=== PATIENT | male | born 1990 | race African-American/Black ===

== ENCOUNTER 2018-06-13 21:41 | Emergency (ER) | payer SELFPAY ==
[2018-06-13] MEDS ORDERED: Ibuprofen 200 MG TAB ONE (22:23)
[2018-06-13] MEDS ORDERED: Amoxicillin/Potassium Clav 875 MG TAB ONE (22:23)
[2018-06-13] MEDS ORDERED: HYDROcodone/Acetaminophen 5/325 mg Tablet ONE (22:23)
== END 2018-06-13 22:34 | disposition home or self-care (01) ==
LOC: NAV ERS 21:41
DX: K03.81 Cracked tooth (principal); K02.9 Dental caries, unspecified
CPT/HCPCS: 99282

== ENCOUNTER 2018-07-16 15:02 | Emergency (ER) | payer SELFPAY | END 2018-07-16 15:40 | disposition home or self-care (01) | LOC: NAV ERS 15:02 | DX: M79.671 Pain in right foot (principal); F17.210 Nicotine dependence, cigarettes, uncomplicated | CPT/HCPCS: 99283 ==

== ENCOUNTER 2018-08-25 23:25 | Emergency (ER) | payer SELFPAY ==
[2018-08-25] MEDS ORDERED: Ketorolac Tromethamine 30 MG/ML VIAL ONE (23:53)
[2018-08-25] MEDS ORDERED: diphenhydrAMINE 50 MG/ML VIAL ONE (23:53)
[2018-08-25] MEDS ORDERED: Metoclopramide HCl 10 MG/2 ML VIAL ONE (23:53)
[2018-08-25] MEDS ORDERED: Sodium Chloride 0.9% 1,000 ML ONE (23:53)
[2018-08-26] MEDS ORDERED: methylPREDNISolone Sod Succ/PF 125 MG/2 ML VIAL ONE (00:35)
[2018-08-26] MEDS ORDERED: Metoclopramide HCl 10 MG TAB ONE (00:35)
[2018-08-26] MEDS ORDERED: Metoclopramide HCl 10 MG/2 ML VIAL ONE (00:35)
== END 2018-08-26 02:10 | disposition home or self-care (01) ==
LOC: NAV ERS 23:25
DX: R51 Headache (principal); F17.210 Nicotine dependence, cigarettes, uncomplicated
CPT/HCPCS: 99283; J1200; J1885; J2765; J2930; J7050

== ENCOUNTER 2019-04-04 21:58 | Emergency (ER) | payer SELFPAY | END 2019-04-04 22:20 | disposition home or self-care (01) | LOC: NAV ERS 21:58 | DX: M79.671 Pain in right foot (principal); F17.210 Nicotine dependence, cigarettes, uncomplicated | CPT/HCPCS: 99281 ==

== ENCOUNTER 2020-01-23 08:27 | Emergency (ER) | payer SELFPAY ==
[2020-01-23 09:26] LABS: #Basophils 0.1 thou/uL (0.0-0.2); #Eosinphils 0.1 thou/uL (0.0-0.7); #Lymphocytes 1.8 thou/uL (1.20-3.40); #Monocytes 0.8 thou/uL (0.11-0.59); #Neutrophils 5.9 thou/uL (1.40-6.50); %Eosinophils 1.5 % (0.0-10.0); %Monocytes 8.9 % (0.0-10.0); %Neutrophils 67.6 % (42.0-75.0); Hemoglobin 15.8 g/dL (14.0-18.0); Mean Corpuscular HGB CONC 32.2 g/dL (32.0-36.0); Mean Corpuscular Hemoglobin 30.1 pg (27.0-31.0); Mean Corpuscular Volume 93.4 fL (78.0-98.0); Platelet Count 215 thou/uL (130-400); Red Blood Cell (RBC) Count 5.26 mill/uL (4.70-6.10); White Blood Cell (WBC) Count 8.7 thou/uL (4.8-10.8)
[2020-01-23 09:40] LABS: Anion Gap 13 mmol/L (10-20); BUN (Urea Nitrogen) 7 mg/dL (8.9-20.6); Calc. Creatinine Clearance 0 mL/min (70-130); Calcium 8.9 mg/dL (7.8-10.44); Carbon Dioxide 25 mmol/L (22-29); Chloride 104 mmol/L (98-107); Estimated GFR-MDRD Greater than 90; Glucose 89 mg/dL (70-105); Potassium 3.7 mmol/L (3.5-5.1); Sodium 138 mmol/L (136-145)
== END 2020-01-23 10:20 | disposition home or self-care (01) ==
LOC: NAV ERS 08:27
DX: F41.1 Generalized anxiety disorder (principal); F17.210 Nicotine dependence, cigarettes, uncomplicated
CPT/HCPCS: 80048; 85025; 93005

== ENCOUNTER 2020-03-27 05:15 | Emergency (ER) | payer SELFPAY | END 2020-03-27 05:49 | disposition home or self-care (01) | LOC: NAV ERS 05:15 | DX: F41.1 Generalized anxiety disorder (principal); F17.210 Nicotine dependence, cigarettes, uncomplicated | CPT/HCPCS: 99283 ==

== ENCOUNTER 2020-05-03 23:53 | Emergency (ER) | payer SELFPAY ==
[2020-05-04] MEDS ORDERED: Ondansetron ODT 4 MG TAB ONE (00:22)
== END 2020-05-04 01:13 | disposition home or self-care (01) ==
LOC: NAV ERS 23:53
DX: R11.2 Nausea with vomiting, unspecified (principal); F17.210 Nicotine dependence, cigarettes, uncomplicated
CPT/HCPCS: 99283; Q0162

== ENCOUNTER 2021-04-26 12:15 | Emergency (ER) | payer SELFPAY | END 2021-04-26 12:54 | disposition home or self-care (01) | LOC: NAV ERS 12:15 | DX: K02.9 Dental caries, unspecified (principal); F17.210 Nicotine dependence, cigarettes, uncomplicated | CPT/HCPCS: 99282 ==

== ENCOUNTER 2022-06-22 07:35 | Emergency (ER) | payer OTHER, SELFPAY ==
[2022-06-22] MEDS ORDERED: Ketorolac Tromethamine 60 MG/2 ML VIAL ONE (08:27)
== END 2022-06-22 09:39 | disposition home or self-care (01) ==
LOC: NAV ERS 07:35
DX: S16.1XXA Strain of muscle, fascia and tendon at neck level, initial encounter (principal); F17.210 Nicotine dependence, cigarettes, uncomplicated; V89.2XXA Person injured in unspecified motor-vehicle accident, traffic, initial encounter
CPT/HCPCS: 72125; 96372; J1885

== ENCOUNTER 2022-07-07 16:32 | Emergency (ER) | payer SELFPAY | END 2022-07-07 17:13 | disposition home or self-care (01) | LOC: NAV ERS 16:32 | DX: M79.671 Pain in right foot (principal); L84 Corns and callosities; F17.210 Nicotine dependence, cigarettes, uncomplicated | CPT/HCPCS: 99283 ==

== ENCOUNTER 2023-11-27 21:53 | Emergency (ER) | payer SELFPAY ==
[2023-11-27 22:09] LABS: #Basophils 0.2 thou/uL (0.0-0.2); #Eosinphils 0.2 thou/uL (0.0-0.7); #Lymphocytes 2.6 thou/uL (1.20-3.40); #Monocytes 0.9 thou/uL (0.11-0.59); #Neutrophils 3.7 thou/uL (1.40-6.50); %Basophils 2.2 % (0.0-1.0); %Eosinophils 3.2 % (0.0-10.0); %Lymphocytes 33.8 % (21.0-51.0); %Monocytes 11.5 % (0.0-10.0); %Neutrophils 49.2 % (42.0-75.0); Hematocrit 44.5 % (42.0-52.0); Hemoglobin 14.8 g/dL (14.0-18.0); Mean Corpuscular HGB CONC 33.3 g/dL (32.0-36.0); Mean Corpuscular Hemoglobin 29.2 pg (27.0-31.0); Mean Corpuscular Volume 87.6 fl (78.0-98.0); Mean Platelet Volume 7.3 fL (7.4-10.4); Platelet Count 307 10x3/uL (130-400); RBC Distribution Width 12.8 % (11.5-14.5); Red Blood Cell (RBC) Count 5.08 mill/uL (4.70-6.10); White Blood Cell (WBC) Count 7.6 10x3/uL (4.8-10.8)
[2023-11-27] MEDS ORDERED: Acetaminophen 500 MG TAB ONE (22:12)
[2023-11-27] MEDS ORDERED: Aspirin Chewable 81 MG TAB ONE (22:12)
[2023-11-27 22:26] LABS: ALT (SGPT) 27 U/L (8-55); AST (SGOT) 22 U/L (5-34); Albumin 4.4 g/dL (3.5-5.0); Alkaline Phosphatase 77 U/L (40-110); Anion Gap 14 mmol/L (10-20); BUN (Urea Nitrogen) 10 mg/dL (8.9-20.6); Bilirubin, Total 0.5 mg/dL (0.2-1.2); Calc. Creatinine Clearance 0 mL/min (70-130); Calcium 9.1 mg/dL (7.8-10.44); Carbon Dioxide 25 mmol/L (22-29); Chloride 102 mmol/L (98-107); Estimated GFR 99; Globulin 3.5 g/dL (2.4-3.5); Glucose 128 mg/dL (70-105); Potassium 3.7 mmol/L (3.5-5.1); Protein, Total 7.9 g/dL (6.0-8.3); Sodium 137 mmol/L (136-145); Troponin I Less than 0.010 ng/mL (< 0.028)
[2023-11-27 22:42] LABS: Bilirubin Negative (Negative); Blood, Urine Negative (Negative); Clarity Clear (Clear); Glucose, Urine (Dipstick) Negative (Negative); Ketone, Urine Negative (Negative); Leukocyte Negative (Negative); Nitrite Negative (Negative); Protein, Urine (Dipstick) Negative (Neg-Trace); Specific Gravity, Urine 1.015 (1.005-1.030); Urobilinogen 0.2 mg/dL (Less than 2)
[2023-11-27 22:44] LABS: Bacteria/HPF None Seen HPF (None Seen); CAUTI Indications for Culture Fever or rigors; RBC/HPF None Seen HPF (0-3); Squamous Epithelial None Seen HPF (0-3); Urine Culture Reflex No No; WBC/HPF None Seen HPF (0-3)
[2023-11-27 22:48] LABS: Amphetamine Not Detected (NotDetected); Barbiturates Screen Not Detected (NotDetected); Benzodiazepine Screen Not Detected (NotDetected); Cocaine Metabolite Screen Not Detected (NotDetected); Methadone Not Detected (NotDetected); Methamphetamine Not Detected (NotDetected); Opiate Screen Detected (NotDetected); Oxycodone Screen Not Detected (NotDetected); Phencyclidine (PCP) Not Detected (NotDetected); THC/Cannabinoid Screen Not Detected (NotDetected); Tricyclic Screen Not Detected (NotDetected)
[2023-11-28 01:19] LABS: Troponin I Less than 0.010 ng/mL (< 0.028)
== END 2023-11-28 01:41 | disposition home or self-care (01) ==
LOC: NAV ERS 21:53
DX: J43.9 Emphysema, unspecified (principal); R07.9 Chest pain, unspecified; F17.210 Nicotine dependence, cigarettes, uncomplicated
CPT/HCPCS: 71045; 80053; 80306; 81001; 84484; 85025; 93005; 94760